=== PATIENT | female | born 1960 | race Asian ===

== ENCOUNTER → 2017-07-05 | Day surgery (SDC) | payer OTHER ==
[~2017-07-05] VITALS: Ht 160 cm; Wt 86.2 kg
[2017-07-05 07:24] VITALS: BP 136/86
[2017-07-05 10:21] VITALS: BP 98/67
== END | disposition home or self-care (01) ==
LOC: GI 07:08 → OR 08:30 → GI 08:30
PROVIDERS: Internal Medicine Gastroenterology
PROC: 0DB18ZX Excision of Upper Esophagus, Via Natural or Artificial Opening Endoscopic, Diagnostic (ICD-10-PCS; principal; 2017-07-05 08:30)
PROC: 0DB68ZX Excision of Stomach, Via Natural or Artificial Opening Endoscopic, Diagnostic (ICD-10-PCS; 2017-07-05 08:30)
PROC: 0D758ZZ Dilation of Esophagus, Via Natural or Artificial Opening Endoscopic (ICD-10-PCS; 2017-07-05 08:30)
DX: R13.10 Dysphagia, unspecified (principal); K76.0 Fatty (change of) liver, not elsewhere classified; B19.10 Unspecified viral hepatitis B without hepatic coma; Z68.33 Body mass index [BMI] 33.0-33.9, adult
CPT/HCPCS: 43235; C1769; J1200; J1610; J2250; J2310; J3010; J3490